=== PATIENT | female | born 1955 | race Native Hawaiian/Other Pacific Islander ===

== ENCOUNTER 2022-02-16 22:19 | Emergency (ER) | payer OTHER ==
[~2022-02-16] VITALS: Ht 160 cm; Wt 55.3 kg
[2022-02-16 22:48] LABS: PLATELET COUNT 216 K/uL (152-353)
[2022-02-16 22:58] LABS: POTASSIUM 3.8 mmol/L (3.6-5.2)
[2022-02-16 23:28] VITALS: BP 132/58; TEMP 97.8
[2022-02-17] MEDS ORDERED: ANAS1TAB PO (11:43)
[2022-02-17] MEDS ORDERED: FAMOTIDINE MAXI20 MG PO (11:44)
[2022-02-17] MEDS ORDERED: CERTAVITE/ANTIOXIDAN PO (11:44)
[2022-02-17] MEDS ORDERED: DOCU100C10 PO (11:44)
[2022-02-17] MEDS ORDERED: LORA0.5T17 PO (11:45)
[2022-02-17] MEDS ORDERED: MELATONIN3 M1 PO (11:45)
[2022-02-17] MEDS ORDERED: METO25TA2 PO (11:46)
[2022-02-17] MEDS ORDERED: PALIPERIDONE ER6 MG PO (11:47)
[2022-02-17] MEDS ORDERED: MIRTAZAPINE7.5 MG PO (11:47)
[2022-02-17] MEDS ORDERED: MIRALAX17 GM PO (11:48)
[2022-02-17] MEDS ORDERED: SENOKOT8.6 MG PO (11:49)
[2022-02-17] MEDS ORDERED: ROSU10TA PO (11:49)
[2022-02-17] MEDS ORDERED: VITAMIN D31000 UNI4 PO (11:50)
[2022-02-17] MEDS ORDERED: ACET-206 PO (11:51)
[2022-02-17] MEDS ORDERED: RIVADIS TOP (11:53)
== END 2022-02-16 23:28 | disposition still patient (30) ==
LOC: ED 22:19
PROVIDERS: Emergency Medicine
DX: F20.89 Other schizophrenia (principal); F32.89 Other specified depressive episodes; R45.851 Suicidal ideations; R45.1 Restlessness and agitation; Z11.52 Encounter for screening for COVID-19; Z04.6 Encounter for general psychiatric examination, requested by authority
CPT/HCPCS: 36415; 80053; 85027; 87635; 93005; 99283; U0003

== ENCOUNTER 2023-01-12 17:55 | Emergency (ER) | payer OTHER ==
[~2023-01-12] VITALS: Ht 160 cm; Wt 50.8 kg
[~2023-01-12 17:55] MED LIST: ACET-206 PO; ANAS1TAB PO; ATOR20TA2 PO; BLOOMIS59 PO; CERTAVITE/ANTIOXIDAN PO; CHOL100034 PO; DOCU100C10 PO; ESCI10TA PO; EXELON4.6 MG/24 TOP; FAMOTIDINE MAXI20 MG PO; FAMOTIDINE20 MG PO; LEVOFLOXACIN500 MG PO; LORA0.5T17 PO; MAGNSUS68 PO; MELATONIN MAXIMU5 MG PO; MELATONIN3 M1 PO; METO-837 PO; METO25TA2 PO; MIRALAX 17GM PAK PO; MIRALAX17 GM PO; MIRTAZAPINE7.5 MG PO; PALI3TAB PO; PALIPERIDONE ER6 MG PO; RIVADIS TOP; ROSU10TA PO; SENOKOT8.6 MG PO; VITAMIN D31000 UNI4 PO
[2023-01-12 18:31] LABS: PLATELET COUNT 247 K/uL (152-353)
[2023-01-12 18:35] LABS: POTASSIUM 3.8 mmol/L (3.6-5.2)
[2023-01-12 20:22] VITALS: BP 118/56; TEMP 97.3
[2023-01-12] MEDS ORDERED: LORA0.5T17 PO (21:42)
[2023-01-12] MEDS ORDERED: CALCIUM 600600 MG PO (21:45)
[2023-01-12] MEDS ORDERED: D35000 UNIT PO (21:46)
[2023-01-12] MEDS ORDERED: DIVA125C PO (21:49)
[2023-01-12] MEDS ORDERED: SERT50TA PO (21:52)
[2023-01-12] MEDS ORDERED: TRAZ50TA36 PO (21:54)
[2023-01-12] MEDS ORDERED: ARTIFICIAL TEAR1.4 % OPTH (22:00)
[2023-01-12] MEDS ORDERED: MAGNSUS68 PO (22:01)
[2023-01-12] MEDS ORDERED: TRAM50TA PO (22:02)
[2023-01-23] MEDS ORDERED: Depakote Sprinkles 1 PO (09:44)
[2023-01-23] MEDS ORDERED: ACET-206 PO (09:44)
[2023-01-23] MEDS ORDERED: LORA0.5T17 PO (09:45)
[2023-01-23] MEDS ORDERED: MAGNSUS68 PO (09:45)
[2023-01-23] MEDS ORDERED: MIRALAX 17GM PAK PO (09:45)
[2023-01-23] MEDS ORDERED: BLOOMIS59 PO (09:45)
[2023-01-23] MEDS ORDERED: TRAZ50TA36 PO (09:46)
[2023-01-23] MEDS ORDERED: SERT50TA PO (09:46)
== END 2023-01-12 20:22 | disposition other institution (70) ==
LOC: ED 17:55
PROVIDERS: Family Medicine
DX: R45.1 Restlessness and agitation (principal); R45.6 Violent behavior; F41.9 Anxiety disorder, unspecified; F20.9 Schizophrenia, unspecified; K21.9 Gastro-esophageal reflux disease without esophagitis; Z02.79 Encounter for issue of other medical certificate
CPT/HCPCS: 36415; 80053; 85027; 87635; 93005; 99283; U0003